=== PATIENT | male | born 1960 | race Caucasian/White ===

== ENCOUNTER 2023-08-24 15:39 | Emergency (ER) | payer SELFPAY ==
--- NOTE | 2023-08-24 16:34 | RAD REPORT ---
EXAM DESCRIPTION: RAD - Chest Single View - 08/24/2023 4:27 pm CLINICAL HISTORY: ABDOMINAL DISTENTION COMPARISON: No comparisons FINDINGS: Lines: None. Lungs: No evidence of edema or pneumonia. Pleural: No significant pleural effusions or pneumothorax. Cardiac: The heart size is within normal limits. Mediastinum: Within normal limits. Bones: No acute fractures. Other: None IMPRESSION: No acute cardiopulmonary disease.
[2023-08-24] MEDS ORDERED: NA CHLORIDE 0.9% 500 ML ONE (16:57)
[2023-08-24] MEDS ORDERED: NA CHLORIDE 0.9% 100 ML ONE (16:57)
[2023-08-24] MEDS ORDERED: IPRATROPIUM BROM 0.5MG/2.5ML ONE (16:57)
[2023-08-24] MEDS ORDERED: PIPERACIL/TAZO 3.375 GM VIAL IV ONE (16:57)
[2023-08-24] MEDS ORDERED: LEVALBUTEROL 1.25 MG/3 ML NEB ONE (16:57)
[2023-08-24 17:13] LABS: Albumin 2.6 g/dL (3.4-5.0); Albumin/Globulin Ratio 0.8 (1.1-1.8); Anion Gap 10.8 mEq/L (5.0-15.0); Bilirubin Direct 0.6 mg/dL (0-0.2); Bilirubin Indirect, Calculated 1.3 mg/dL (0.2-0.8); Bilirubin Total 1.9 mg/dL (0.2-1.0); Globulin 3.2 g/dL (2.3-3.5); Magnesium 1.7 mg/dL (1.6-2.4); Potassium 4.8 mEq/L (3.5-5.1); Protein, Total 5.8 g/dL (6.4-8.2); Troponin High Sensitivity 5.2 pg/mL (<58.9)
[2023-08-24 17:14] LABS: Absolute Lymphocytes (CBC) 0.8 K/uL (0.7-4.9); Absolute Monocytes 0.4 K/uL (0.1-1.3); Basophils % 0.1 % (0-1.3); Eosinophils % 0.1 % (0-4.4); Hematocrit 33.3 % (39.6-49.0); Hemoglobin 11.1 g/dL (13.6-17.9); Lymphocytes % 6.3 % (15.3-44.8); MCH 34.5 pg (27.0-35.0); MCHC 33.4 g/dL (32.0-36.0); MCV 103.3 fL (80-100); MPV 9.2 fL (7.6-11.3); Monocytes % 3.1 % (3.3-12.3); Neutrophils % 90.4 % (41.7-73.7); PT Prothrombin Time 14.3 SECONDS (9.5-12.5); Platelets 136 thou/uL (152-406); Protime INR 1.31; RBC Red Blood Cell Count 3.22 M/uL (4.33-5.43); Red Cell Distribution Width 14.7 % (12.1-15.2)
[2023-08-24] MEDS ORDERED: VITAMIN K (ADULT) 10 MG/ML ONE (17:25)
--- NOTE | 2023-08-24 18:00 | RAD REPORT ---
EXAM DESCRIPTION: CTAbdomen Pelvis W Contrast - 08/24/2023 5:46 pm CLINICAL HISTORY: ABD PAIN COMPARISON: None TECHNIQUE: CT of the abdomen and pelvis was performed. All CT scans are performed using dose optimization technique as appropriate and may include automated exposure control or mA/KV adjustment according to patient size. FINDINGS: Lower chest: Atelectasis in lung bases. Mitral annular calcifications. Liver: Cirrhotic liver morphology. Biliary: Gallbladder wall thickening which may be related underlying liver disease. Stomach: No significant focal abnormality. Duodenum: No significant focal abnormality. Pancreas: No significant abnormality. Spleen: Splenomegaly. Adrenal: No suspicious lesions. Kidney/ureter: No hydronephrosis. No renal calculi. Too small to characterize and/or benign appearing renal lesions are noted. The largest cyst measures nearly 10 cm. Retroperitoneum: No retroperitoneal adenopathy. Vascular: No aneurysm. Atherosclerosis. Severe common iliac artery stenoses versus occlusions. Bowel: Partial colectomy. Mild diffuse colonic small bowel wall thickening.. Small fat containing rig ht inguinal hernia. Peritoneum: Mild ascites. Ventral abdominal wall laxity. Wound at the umbilicus with soft tissue pres ent. There are dilated venous structures just below the surface of the abdominal wall wound. Bladder: Grossly unremarkable. Reproductive: No adnexal masses. Bones: No acute fracture. Multilevel degenerative changes are present in the spine. Other: n/a IMPRESSION: 1. Wound at the umbilicus with dilated venous collateral vessels (as a result of the pat ient's portal hypertension) just below the surface of the wound likely explaining the source of the p atient's bleeding from this location. 2. Cirrhosis with evidence of portal hypertension including splenomegaly and ascites. Recannulized um bilical vein. 3. Gallbladder wall thickening likely related to underlying hepatocellular disease. 4. Severe bilateral common iliac artery stenoses versus occlusions.
--- NOTE | 2023-08-24 18:03 | EDPHYS ---
Physician Documentation [facility] Name: Fred Mcdermott Age: 63 yrs Sex: Male : 1960 Arrival Date: 08/24/2023 Time: 15:39 Bed 18 Private MD: ED Physician Saturnino Hay HPI: 08/23 17:40 This 63 yrs old Male presents to ER via Wheelchair with complaints of Wound katarzyna Check. 17:40 Patient presents to ED for recheck of:. katarzyna Historical: - Allergies: 16:50 No Known Allergies; ph - PMHx: 16:50 COPD; hernia; ph - Immunization history:: Adult Immunizations up to date. - Infectious Disease History:: Denies. - Social history:: Smoking status: unknown. ROS: 17:43 Constitutional: Negative for fever, chills, and weight loss, Eyes: Negative for injury, katarzyna pain, redness, and discharge, ENT: Negative for injury, pain, and discharge, Neck: Negative for injury, pain, and swelling, Cardiovascular: Negative for chest pain, palpitations, and edema, Respiratory: Negative for shortness of breath, cough, wheezing, and pleuritic chest pain, Back: Negative for injury and pain, : Negative for injury, bleeding, discharge, and swelling, MS/Extremity: Negative for injury and deformity, Neuro: Negative for headache, weakness, numbness, tingling, and seizure, Psych: Negative for depression, anxiety, suicide ideation, homicidal ideation, and hallucinations, Allergy/Immunology: Negative for hives, rash, and allergies, Endocrine: Negative for neck swelling, polydipsia, polyuria, polyphagia, and marked weight changes, 17:43 Abdomen/GI: Positive for abdominal pain, of the umbilical area, heavy umbilical bleeding, Exam: 17:43 Constitutional: This is a well developed, well nourished patient who is awake, alert, katarzyna and in no acute distress. Head/Face: Normocephalic, atraumatic. Eyes: Pupils equal round and reactive to light, extra-ocular motions intact. Lids and lashes normal. Conjunctiva and sclera are non-icteric and not injected. Cornea within normal limits. Periorbital areas with no swelling, redness, or edema. ENT: Nares patent. No nasal discharge, no septal abnormalities noted. Tympanic membranes are normal and external auditory canals are clear. Oropharynx with no redness, swelling, or masses, exudates, or evidence of obstruction, uvula midline. Mucous membranes moist. Neck: Trachea midline, no thyromegaly or masses palpated, and no cervical lymphadenopathy. Supple, full range of motion without nuchal rigidity, or vertebral point tenderness. No Meningismus. Chest/axilla: Normal chest wall appearance and motion. Nontender with no deformity. No lesions are appreciated. Cardiovascular: Regular rate and rhythm with a normal S1 and S2. No gallops, murmurs, or rubs. Normal PMI, no JVD. No pulse deficits. Back: No spinal tenderness. No costovertebral tenderness. Full range of motion. Male : Normal genitalia with no discharge or lesions. MS/ Extremity: Pulses equal, no cyanosis. Neurovascular intact. Full, normal range of motion. Neuro: Awake and alert, GCS 15, oriented to person, place, time, and situation. Cranial nerves II-XII grossly intact. Motor strength 5/5 in all extremities. Sensory grossly intact. Cerebellar exam normal. Normal gait. Psych: Awake, alert, with orientation to person, place and time. Behavior, mood, and affect are within normal limits. 17:43 ECG was reviewed by the Attending Physician. 17:43 Respiratory: mild respiratory distress is noted, Respirations: labored breathing, that is mild, Breath sounds: bronchial sounds, that are mild, are scattered, Respiratory rate: 18 17:52 Abdomen/GI: heavy bleeding from umbilicus, hx of cirrhosis, bleeding disorder secondary katarzyna liver cirrhosis, Vital Signs: 15:55 BP 148 / 93; Pulse 87; Resp 18; Temp 97.2; Pulse Ox 93% on R/A; ph 16:00 BP 152 / 74; Pulse 82; Resp 18; Pulse Ox 92% on R/A; ph 16:30 BP 145 / 65; Pulse 87; Resp 16; Pulse Ox 92% on R/A; ph 17:00 BP 132 / 78; Pulse 84; Resp 14; Pulse Ox 92% on R/A; ph 17:30 BP 127 / 73; Pulse 86; Resp 16; Pulse Ox 91% on R/A; ph 17:55 Pulse Ox 89% on R/A; nj1 18:08 BP 147 / 60; Pulse 80; Resp 20; Pulse Ox 93% on 3 lpm NC; nj1 MDM: 15:50 Patient medically screened. sb4 17:48 Data reviewed: vital signs, nurses notes, lab test result(s), EKG, radiologic studies. 08/23 15:57 Order name: Basic Metabolic Panel; Complete Time: 17:22 [facility] 08/23 15:57 Order name: CBC with Diff; Complete Time: 06:30 [facility] 08/23 15:57 Order name: LFT's; Complete Time: 17:22 [facility] 08/23 15:57 Order name: Magnesium; Complete Time: 17:22 [facility] 08/23 15:57 Order name: NT PRO-BNP; Complete Time: 17:22 [facility] 08/23 15:57 Order name: PT-INR; Complete Time: 17:22 [facility] 08/23 15:57 Order name: Troponin HS; Complete Time: 17:22 [facility] 08/23 15:57 Order name: Lipase; Complete Time: 17:22 [facility] 08/23 16:13 Order name: AMMONIA; Complete Time: 17:22 [facility] 08/23 17:15 Order name: Type And Screen; Complete Time: 06:30 08/23 17:39 Order name: Bb Add On em1 08/23 17:39 Order name: Bb Add On em1 08/23 15:57 Order name: XRAY Chest (1 view); Complete Time: 17:22 [facility] 08/23 15:57 Order name: CT Abd/Pelvis - IV Contrast Only; Complete Time: 18:08 [facility] 08/23 15:57 Order name: EKG; Complete Time: 15:57 [facility] 08/23 15:57 Order name: Cardiac monitoring; Complete Time: 16:46 [facility] 08/23 15:57 Order name: EKG - Nurse/Tech; Complete Time: 16:46 08/23 15:57 Order name: IV Saline Lock; Complete Time: 16:46 [facility] 08/23 15:57 Order name: Labs collected and sent; Complete Time: 16:46 [facility] 08/23 15:57 Order name: O2 Per Protocol; Complete Time: 16:46 [facility] 08/23 15:57 Order name: O2 Sat Monitoring; Complete Time: 16:46 [facility] 08/23 15:57 Order name: NPO; Complete Time: 16:46 [facility] EC:43 Rate is 95 beats/min. Rhythm is regular. QRS [place] is Normal. ND interval is normal. QRS katarzyna interval is normal. QT interval is normal. No Q waves. T waves are Normal. Clinical impression: NSR w/ Non-specific ST/T Changes and No evidence of ischemia. Interpreted by me. Reviewed by me. Administered Medications: 17:35 Drug: Levalbuterol Inhalation 2.5 mg Inhalation once Route: Inhalation; ph 17:35 Drug: Ipratropium Inhalation Aerosol 0.5 mg Inhalation once Route: Inhalation; ph 17:40 Drug: NS 0.9% IV 500 ml IV at bolus once Route: IV; Rate: bolus; Site: left hand; ph 18:19 Follow up: IV Status: Infusion continued upon transfer ph 17:45 Drug: Phytonadione IM 10 mg IM once Route: IM; Site: right deltoid; ph 18:19 Follow up: Response: No adverse reaction ph 17:57 Drug: Piperacillin-Tazobactam IVPB 3.375 grams IVPB once over 60 mins; (mix in NS 100 nj1 mL) Route: IVPB; Infused Over: 60 mins; Site: left hand; 18:19 Follow up: IV Status: Infusion continued upon transfer ph 18:19 Not Given (Other Intervention Used): ns 0.9% 1000 ml IV at 125 ml/hr continuous ph Disposition Summary: 08/24/23 18:02 Transfer Ordered Notes: Transfer Location: [facility] katarzyna Reason: Higher level of care katarzyna Condition: Serious katarzyna Problem: new katarzyna Symptoms: have improved katarzyna Accepting Physician: dr juju anderson(08/24/23 18:25) nj1 Diagnosis - Obesity, unspecified katarzyna - Unspecified cirrhosis of liver katarzyna - Anemia, unspecified katarzyna - Elevated white blood cell count katarzyna - Abnormal coagulation profile katarzyna - Coagulation defect, unspecified katarzyna - Umbilical hernia without obstruction or gangrene - with heavy bleeding, dilated katarzyna venous collateral (08/24/23 18:10) - Alcoholic cirrhosis of liver with ascites katarzyna Forms: - Medication Reconciliation Form katarzyna - SBAR form katarzyna Signatures: Dispatcher [employer] EDSaturnino Nichols MD MD cha Attema, Lee, FINANCIAL INVESTMENT ADVISER-C FINANCIAL INVESTMENT ADVISER-Cla1 Katiana Tipton RN RN ph Janey Motta PA-C PAKaur raines4 Ledy Little RN RN nj1 Corrections: (The following items were deleted from the chart) 15:57 15:57 Abdomen Pelvis W Con+CT.RAD.BRZ ordered. EDMS EDMS 18:10 18:02 dr juju anderson cha, cha 18:10 18:02 Umbilical hernia without obstruction or gangrene - with heavy bleeding katarzyna katarzyna 18:25 18:10 dr juju anderson cha nj1
--- NOTE | 2023-08-24 18:03 | ER ---
Nurse's Notes 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 Coronavirus screen: Client denies travel out of the [place] in the last 14 days. At this time, the client does not indicate any symptoms associated with coronavirus-19. Ebola Screen: Patient denies travel to an Ebola-affected area in the 21 days before illness onset. Initial Sepsis Screen: Does the patient meet any 2 criteria? No. Patient's initial sepsis screen is negative. Does the patient have a suspected source of infection? No. Patient's initial sepsis screen is negative. Risk Assessment: Do you want to hurt yourself or someone else? Patient reports no desire to harm self or others. Onset of symptoms was August 24, 2023. 15:52 Method Of Arrival: Wheelchair ph 15:52 Acuity: SHIRAZ 2 ph Historical: - Allergies: 16:50 No Known Allergies; ph - PMHx: 16:50 COPD; hernia; ph - Immunization history:: Adult Immunizations up to date. - Infectious Disease History:: Denies. - Social history:: Smoking status: unknown. Screenin:[facility] ED Fall Risk Assessment (Adult) History of falling in the last 3 months, ph including since admission No falls in past 3 months (0 pts) Confusion or Disorientation No (0 pts) Intoxicated or Sedated No (0 pts) Impaired Gait No (0 pts) Mobility Assist Device Used No (0 pt) Altered Elimination No (0 pt) Score/Fall Risk Level 0 - 2 = Low Risk Oriented to surroundings, Maintained a safe environment, Hourly rounding (assess needs \T\ fall precautionary measures) done. Abuse screen: Denies threats or abuse. Denies injuries from another. Nutritional screening: No deficits noted. Tuberculosis screening: No symptoms or risk factors identified. Assessment: 16:47 General: Appears in no apparent distress. Behavior is calm, cooperative. Pain: Denies ph pain. Neuro: Level of Consciousness is awake, alert, obeys commands, Oriented to person, place, time, situation. Cardiovascular: Capillary refill < 3 seconds in bilateral fingers Patient's skin is warm and dry. Respiratory: Airway is patent Respiratory effort is even, unlabored, Denies shortness of breath. GI: Abdomen is round distended, wound to mid-lower abdomen, covered w/ clear dressing, a large clot noted beneath dressing, small amount of active bleeding noted at this time. Derm: Skin is intact, Skin is dry, Skin is dusky, Skin temperature is warm. Musculoskeletal: Circulation, motion, and sensation intact. Range of motion: intact in all extremities. 17:05 Reassessment: Bleeding from abdomen noted to have increased, Dr Hay notified and ph at bedside, dressing removed and large clot dislodged, bleeding noted from umbilicus. Dr Hay attempted to place suture to area and bleeding increased, Surgicel and pressure dressing placed, pt moved to Ed 18, report given to Ledy LAZO, VSS at this time, pt denies pain. 18:00 Reassessment: Pants cut, ok by patient. Wallet, ID, keys, phone, belt, cigarettes and nj1 recreation leader put in belongings bag, bag placed in between patients legs on stretcher. 18:20 Reassessment: [employer] at bedside, report given to flight nurse, pt transferred to [facility], report called to ED. Vital Signs: 15:55 BP 148 / 93; Pulse 87; Resp 18; Temp 97.2; Pulse Ox 93% on R/A; ph 16:00 BP 152 / 74; Pulse 82; Resp 18; Pulse Ox 92% on R/A; ph 16:30 BP 145 / 65; Pulse 87; Resp 16; Pulse Ox 92% on R/A; ph 17:00 BP 132 / 78; Pulse 84; Resp 14; Pulse Ox 92% on R/A; ph 17:30 BP 127 / 73; Pulse 86; Resp 16; Pulse Ox 91% on R/A; ph 17:55 Pulse Ox 89% on R/A; nj1 18:08 BP 147 / 60; Pulse 80; Resp 20; Pulse Ox 93% on 3 lpm NC; nj1 ED Course: 15:40 Patient arrived in ED. rg4 15:41 Janey Motta PA-C is PHCP. sb4 15:41 Saturnino Hay MD is Attending Physician. sb4 15:52 Arm band placed on Patient placed in an exam room, on a stretcher. ph 15:53 Triage completed. ph 16:12 Katiana Tipton, RN is Primary Nurse. ph 16:29 XRAY Chest (1 view) In Process Unspecified. EDMS 16:40 Missed attempt(s): 20 gauge in left antecubital area. Bleeding controlled, band aid ph applied, catheter tip intact. Missed attempt(s): 22 gauge in left antecubital area. Bleeding controlled, band aid applied, catheter tip intact. 16:46 AMMONIA Sent. ph 16:46 Lipase Sent. ph 16:46 Troponin HS Sent. ph 16:46 PT-INR Sent. ph 16:46 NT PRO-BNP Sent. ph 16:46 Magnesium Sent. ph 16:46 LFT's Sent. ph 16:46 CBC with Diff Sent. ph 16:46 Basic Metabolic Panel Sent. ph 16:49 Initial lab(s) drawn, by mt, sent to lab. EKG done. Inserted saline lock: 22 gauge in ph left hand, using aseptic technique. Blood collected. 16:51 Patient has correct armband on for positive identification. Placed in gown. Bed in low ph position. Call light in reach. Side rails up X2. Client placed on continuous cardiac and pulse oximetry monitoring. NIBP monitoring applied. reservations agent on. Door closed. Noise minimized. 17:48 CT Abd/Pelvis - IV Contrast Only In Process Unspecified. EDMS 17:55 Oxygen administration via nasal cannula \T\ 2L/min. nj1 18:27 No provider procedures requiring assistance completed. Patient transferred, IV remains ph in place. Administered Medications: 17:35 Drug: Levalbuterol Inhalation 2.5 mg Inhalation once Route: Inhalation; ph 17:35 Drug: Ipratropium Inhalation Aerosol 0.5 mg Inhalation once Route: Inhalation; ph 17:40 Drug: NS 0.9% IV 500 ml IV at bolus once Route: IV; Rate: bolus; Site: left hand; ph 18:19 Follow up: IV Status: Infusion continued upon transfer ph 17:45 Drug: Phytonadione IM 10 mg IM once Route: IM; Site: right deltoid; ph 18:19 Follow up: Response: No adverse reaction ph 17:57 Drug: Piperacillin-Tazobactam IVPB 3.375 grams IVPB once over 60 mins; (mix in NS 100 nj1 mL) Route: IVPB; Infused Over: 60 mins; Site: left hand; 18:19 Follow up: IV Status: Infusion continued upon transfer ph 18:19 Not Given (Other Intervention Used): ns 0.9% 1000 ml IV at 125 ml/hr continuous ph Medication: 16:51 VIS not applicable for this client. ph Outcome: 18:02 ER care complete, transfer ordered by . katarzyna 18:25 Patient left the ED. nj 18:27 Transferred by helicopter to [facility], Transfer form completed. X-rays sent ph w/ patient. 18:27 Condition: stable 18:27 Instructed on the need for transfer, Signatures: Dispatcher [employer] EDMS Saturnino Hay MD MD cha Hall, Patricia, RN RN Maria Isabel Gary rg4 Janey Motta, PA-C PA-C sb4 Ledy Little RN RN nj1 Corrections: (The following items were deleted from the chart) 16:51 16:50 BP 148 / 93; Pulse 87bpm; Resp 18bpm; Pulse Ox 93% RA; Temp 97.2F; ph ph
[2023-08-24 20:42] LABS: Platelet Estimate DECR; White Blood Cell Scan OK (OK)
[2023-08-24 20:43] LABS: Blood Morphology Comment NOTED (NOT SEEN); Polychromasia SLIGHT
[2023-08-24 21:41] VITALS: BP 147/60; TEMP 97.2; O2SAT 93
--- NOTE | 2023-08-25 13:37 | EKG ---
Test Date: 2023-08-24 Test Time: 16:31:21 Grain Distributor: PH MEASUREMENT RESULTS: Intervals: Rate: 95 MS: 170 QRSD: 92 QT: 358 QTc: 449 [place]: P: 43 MS: 170 QRS: -46 T: 69 INTERPRETIVE STATEMENTS: Normal sinus rhythm Left anterior fascicular block Abnormal ECG No previous ECG available for comparison Electronically Signed On 08-25-23 13:36:20 CDT by Lennox Mei
== END 2023-08-24 18:25 | disposition short-term general hospital (02) ==
LOC: ER 15:39
DX: K42.9 Umbilical hernia without obstruction or gangrene (principal); K70.31 Alcoholic cirrhosis of liver with ascites; D68.9 Coagulation defect, unspecified; D72.829 Elevated white blood cell count, unspecified; D64.9 Anemia, unspecified; E66.9 Obesity, unspecified
CPT/HCPCS: 36415; 71045; 74177; 80048; 80076; 82140; 83690; 83735; 83880; 84484; 85025; 85610; 86850; 86870; 86900; 86901; 93005; 96365; 96372; 99285; J2543; J3430; J7040; J7614; J7644; Q9967